=== PATIENT | male | born 1970 | race Two or more races ===

== ENCOUNTER 2021-11-30 12:03 | Inpatient (IN) | payer OTHER ==
[2021-11-30 12:53] VITALS: BMI 20.7
[2021-11-30] MEDS ORDERED: NICOTINE 10 MG CARTRIDGE (INHALER) IH PRN (14:54)
[2021-11-30] MEDS ORDERED: MAGNESIUM HYDROX 2400MG/30ML ORAL SUSPENSION 30 ML CUP PO PRN (14:54)
[2021-11-30] MEDS ORDERED: guaiFENesin 200 MG/10 ML 10 ML UNIT-DOSE CUPS PO PRN (14:54)
[2021-11-30] MEDS ORDERED: MAG HYDROX/AL HYDROX/SIMETH 30 ML UNIT-DOSE CUP PO PRN (14:54)
[2021-11-30] MEDS ORDERED: ACETAMINOPHEN 325 MG TABLET (FP) PO PRN (14:54)
[2021-11-30] MEDS ORDERED: LOPERAMIDE HCL 2 MG CAPSULE PO PRN (14:54)
[2021-11-30] MEDS ORDERED: P-EPHED 60MG/TRIPROLIDI 2.5MG TABLET PO PRN (14:54)
[2021-11-30] MEDS ORDERED: MAGNESIUM CITRATE 300 ML BOTTLE PO PRN (14:54)
[2021-11-30] MEDS ORDERED: IBUPROFEN 400 MG TABLET (FP) PO ONE (15:13)
[2021-11-30] MEDS: IBUPROFEN 400 MG TABLET (FP) PO PRN (15:17)
[2021-11-30] MEDS ORDERED: TUBERCULIN PPD 5 TU/0.1ML VIAL ID ONE (20:49)
[2021-11-30] MEDS: THIAMINE HCL 100 MG TABLET (FP) PO SCH (22:01)
[2021-11-30] MEDS: MELATONIN 5 MG TABLETS PO SCH (22:01)
[2021-11-30] MEDS: NICOTINE 7 MG/24 HOURS TOPICAL PATCH TD SCH (22:02)
[2021-11-30] MEDS: PRENATAL VITAMINS W/ FOLIC ACID TABLET (FP) PO SCH (22:02)
[2021-11-30] MEDS: hydrOXYzine PAMOATE 25 MG CAPSULE (FP) PO PRN (22:03)
[2021-12-01] MEDS ORDERED: methaDONE HCL 10 MG TABLET PO SCH (07:52)
[2021-12-01] MEDS: PRENATAL VITAMINS W/ FOLIC ACID TABLET (FP) PO SCH (09:15)
[2021-12-01] MEDS: NICOTINE 7 MG/24 HOURS TOPICAL PATCH TD SCH (09:16)
[2021-12-01] MEDS: IBUPROFEN 400 MG TABLET (FP) PO PRN ×2 (13:14→21:57)
[2021-12-01] MEDS ORDERED: POLYETHYLENE GLYCOL (HEALTHYLAX) 3350 17 GM PACKET PO PRN (13:43)
[2021-12-01] MEDS ORDERED: DOCUSATE SODIUM 100 MG CAPSULE (FP) PO PRN (13:44)
[2021-12-01 15:22] LABS: HEMOGLOBIN 12.3 GM/dL (11.7-16.9); MCHC 34.2 g/dl (32.0-35.9); MEAN CELL VOLUME 87.9 fl (80-96); MEAN PLT VOLUME 7.9 fl (7.5-11.1); PLATELET COUNT 366 10^3/uL (134-434); RBC 4.09 M/mm3 (4.00-5.60); RDW 13.6 % (11.9-15.9); WHITE BLOOD COUNT 5.9 K/mm3 (4.0-10.0)
[2021-12-01 15:30] LABS: URINE APPEARANCE CLEAR; URINE BILIRUBIN NEGATIVE (NEGATIVE); URINE COLOR YELLOW; URINE GLUCOSE (UA) NEGATIVE (NEGATIVE); URINE KETONE NEGATIVE (NEGATIVE); URINE LEUK ESTERASE NEGATIVE (NEGATIVE); URINE NITRITE NEGATIVE (NEGATIVE); URINE PROTEIN NEGATIVE (NEGATIVE)
[2021-12-01 17:28] LABS: SYPHILIS W/ RPR CONF NON-REACTIVE (NONREACTIVE)
[2021-12-01 18:03] LABS: CALCIUM 8.6 mg/dL (8.5-10.1)
[2021-12-01 18:06] LABS: ALBUMIN 3.2 g/dl (3.4-5.0)
[2021-12-01 18:07] LABS: CREATININE 0.6 mg/dL (0.55-1.3)
[2021-12-01 18:08] LABS: TOT PROT 6.1 g/dl (6.4-8.2)
[2021-12-01 18:18] LABS: BILIRUBIN,TOTAL 0.2 mg/dL (0.2-1)
[2021-12-01] MEDS: MELATONIN 5 MG TABLETS PO SCH (21:57)
[2021-12-01] MEDS: THIAMINE HCL 100 MG TABLET (FP) PO SCH (21:57)
[2021-12-02] MEDS: IBUPROFEN 400 MG TABLET (FP) PO PRN (06:28)
[2021-12-02] MEDS: hydrOXYzine PAMOATE 25 MG CAPSULE (FP) PO PRN (06:29)
[2021-12-02] MEDS: PRENATAL VITAMINS W/ FOLIC ACID TABLET (FP) PO SCH (10:21)
[2021-12-02] MEDS: NICOTINE 7 MG/24 HOURS TOPICAL PATCH TD SCH (10:22)
[2021-12-02] MEDS: MELATONIN 5 MG TABLETS PO SCH (21:40)
[2021-12-02] MEDS: THIAMINE HCL 100 MG TABLET (FP) PO SCH (21:40)
[2021-12-03] MEDS: hydrOXYzine PAMOATE 25 MG CAPSULE (FP) PO PRN (09:42)
[2021-12-03] MEDS: PRENATAL VITAMINS W/ FOLIC ACID TABLET (FP) PO SCH (09:42)
[2021-12-03] MEDS: IBUPROFEN 400 MG TABLET (FP) PO PRN ×2 (09:42→16:57)
[2021-12-03] MEDS: NICOTINE 7 MG/24 HOURS TOPICAL PATCH TD SCH (09:43)
[2021-12-03] MEDS: THIAMINE HCL 100 MG TABLET (FP) PO SCH (22:07)
[2021-12-03] MEDS: MELATONIN 5 MG TABLETS PO SCH (22:07)
[2021-12-04] MEDS: NICOTINE 7 MG/24 HOURS TOPICAL PATCH TD SCH (10:03)
[2021-12-04] MEDS: PRENATAL VITAMINS W/ FOLIC ACID TABLET (FP) PO SCH (10:03)
[2021-12-04] MEDS: IBUPROFEN 400 MG TABLET (FP) PO PRN (10:04)
[2021-12-04] MEDS: THIAMINE HCL 100 MG TABLET (FP) PO SCH (22:17)
[2021-12-04] MEDS: MELATONIN 5 MG TABLETS PO SCH (22:17)
[2021-12-05] MEDS: NICOTINE 7 MG/24 HOURS TOPICAL PATCH TD SCH (09:48)
[2021-12-05] MEDS: PRENATAL VITAMINS W/ FOLIC ACID TABLET (FP) PO SCH (09:48)
[2021-12-05] MEDS: IBUPROFEN 400 MG TABLET (FP) PO PRN (09:49)
[2021-12-05] MEDS: MELATONIN 5 MG TABLETS PO SCH (22:03)
[2021-12-05] MEDS: THIAMINE HCL 100 MG TABLET (FP) PO SCH (22:03)
[2021-12-06] MEDS: IBUPROFEN 400 MG TABLET (FP) PO PRN ×2 (05:53→11:26)
[2021-12-06] MEDS: NICOTINE 7 MG/24 HOURS TOPICAL PATCH TD SCH (10:28)
[2021-12-06] MEDS: PRENATAL VITAMINS W/ FOLIC ACID TABLET (FP) PO SCH (10:28)
[2021-12-06] MEDS: THIAMINE HCL 100 MG TABLET (FP) PO SCH (21:46)
[2021-12-06] MEDS: MELATONIN 5 MG TABLETS PO SCH (21:46)
[2021-12-07] MEDS: NICOTINE 7 MG/24 HOURS TOPICAL PATCH TD SCH (10:38)
[2021-12-07] MEDS: PRENATAL VITAMINS W/ FOLIC ACID TABLET (FP) PO SCH (10:38)
[2021-12-07] MEDS: IBUPROFEN 400 MG TABLET (FP) PO PRN (10:39)
[2021-12-07 13:45] VITALS: BP 119/76; PULSE 73; RESP 18; TEMP 98.6
== END 2021-12-07 19:39 | disposition home or self-care (01) | DRG 772 ==
LOC: SUATTDRO 12:03 → YASAS 12:03 → Y3W 19:20
PROVIDERS: ADMIT Allergy & Immunology; ATTEND Psychiatry & Neurology Pain Medicine
PROC: HZ42ZZZ Group Counseling for Substance Abuse Treatment, Cognitive-Behavioral (ICD-10-PCS; principal; 2021-11-30)
DX: F11.20 Opioid dependence, uncomplicated (principal); F14.20 Cocaine dependence, uncomplicated; F12.20 Cannabis dependence, uncomplicated; F17.210 Nicotine dependence, cigarettes, uncomplicated; F19.24 Other psychoactive substance dependence with psychoactive substance-induced mood disorder; F41.9 Anxiety disorder, unspecified; F32.A Depression, unspecified; R76.11 Nonspecific reaction to tuberculin skin test without active tuberculosis; Z98.890 Other specified postprocedural states
CPT/HCPCS: 36415; 71046-TC-FY; 80053; 81003; 85027; 86780; 86803; C9803-CS; U0003; U0005

== ENCOUNTER 2021-12-07 14:13 | Emergency (ER) | payer OTHER ==
[2021-12-07 14:18] VITALS: BP 119/76; PULSE 73; RESP 18; TEMP 98.6; BMI 21.6
== END 2021-12-07 15:50 | disposition home or self-care (01) ==
LOC: JERFT 14:13
DX: Z48.02 Encounter for removal of sutures (principal)
CPT/HCPCS: 99281-25